=== PATIENT | female | born 1995 | race African-American/Black ===

== ENCOUNTER 2019-02-20 07:33 | Emergency (ER) | payer BC ==
[~2019-02-20] VITALS: Ht 162.6 cm; Wt 55.3 kg
[2019-02-20 08:08] LABS: URINE BILIRUBIN NEGATIVE (Negative); URINE BLOOD NEGATIVE (Negative); URINE CLARITY CLEAR; URINE COLOR YELLOW; URINE GLUCOSE-RANDOM* NEGATIVE (Negative); URINE KETONES NEGATIVE (Negative); URINE LEUKOCYTES TRACE (Negative); URINE NITRITE NEGATIVE (Negative); URINE PROTEIN (DIPSTICK) NEGATIVE (Negative); URINE SPECIFIC GRAVITY 1.025 (1.005-1.035); URINE UROBILINOGEN 0.2 E.U./dl (0.2-1.0)
[2019-02-20 08:30] LABS: HEMATOCRIT 39.2 % (37.0-47.0); MCH 26.3 pg (26.0-34.0); MCHC 33.2 g/dL (28.0-37.0); MCV 79.3 fL (80.0-100.0); PLATELET COUNT 218 thou/uL (150-400); RBC 4.95 mil/uL (4.20-5.00); RDW 16.3 % (10.5-14.5); WBC 3.5 thou/uL (4.0-11.0)
[2019-02-20 08:40] LABS: CALCIUM 9.3 mg/dL (8.5-10.1)
[2019-02-20 08:46] LABS: ALBUMIN 4.1 g/dL (3.4-5.0); DIRECT BILIRUBIN 0.1 mg/dL (<0.1-0.3); TOTAL BILIRUBIN 0.4 mg/dL (<0.1-1.0); TOTAL PROTEIN 7.7 g/dL (6.4-8.2)
[2019-02-20 09:35] LABS: ABSOLUTE NEUTROPHILS 1.2 thou/uL (1.4-8.2); ATYPICAL LYMPHS 2 %; PLATELET ESTIMATE NORMAL
[2019-02-20] MEDS ORDERED: MOBIC15 MG PO (10:23)
[2019-02-20 10:33] VITALS: BP 105/56
== END 2019-02-20 10:34 | disposition home or self-care (01) ==
LOC: ER 07:33
PROVIDERS: Emergency Medicine
DX: S39.012A Strain of muscle, fascia and tendon of lower back, initial encounter (principal); F41.9 Anxiety disorder, unspecified; F32.9 Major depressive disorder, single episode, unspecified; F17.210 Nicotine dependence, cigarettes, uncomplicated; Z98.890 Other specified postprocedural states; X58.XXXA Exposure to other specified factors, initial encounter; Y93.89 Activity, other specified; Y92.89 Other specified places as the place of occurrence of the external cause; Y99.8 Other external cause status

== ENCOUNTER 2020-04-20 04:56 | Emergency (ER) | payer BC ==
[~2020-04-20] VITALS: Ht 162.6 cm; Wt 56.7 kg
[~2020-04-20 04:56] MED LIST: MOBIC15 MG PO
[2020-04-20] MEDS ORDERED: TIZANIDINE4 MG/1 TA1 PO (05:17)
[2020-04-20] MEDS ORDERED: MIRENA1 EACH INTRAUTERI (05:18)
[2020-04-20] MEDS ORDERED: BUTALB-APAP-CA1 EACH PO (05:28)
[2020-04-20 06:25] VITALS: BP 106/51
== END 2020-04-20 06:25 | disposition home or self-care (01) ==
LOC: ER 04:56
DX: G43.909 Migraine, unspecified, not intractable, without status migrainosus (principal); R11.10 Vomiting, unspecified; R05 Cough; F41.9 Anxiety disorder, unspecified; F32.9 Major depressive disorder, single episode, unspecified; F17.210 Nicotine dependence, cigarettes, uncomplicated; Z98.890 Other specified postprocedural states; Z79.899 Other long term (current) drug therapy

== ENCOUNTER 2020-06-07 09:43 | Emergency (ER) | payer BC ==
[~2020-06-07] VITALS: Ht 162.6 cm; Wt 59.4 kg
[~2020-06-07 09:43] MED LIST changes: +BUTALB-APAP-CA1 EACH PO; +MIRENA1 EACH INTRAUTERI; +TIZANIDINE4 MG/1 TA1 PO
[2020-06-07] MEDS ORDERED: CYCLOBENZAPRINE5 MG PO (11:26)
[2020-06-07 11:36] VITALS: BP 110/70
== END 2020-06-07 11:35 | disposition home or self-care (01) ==
LOC: ER 09:43
DX: M54.2 Cervicalgia (principal); M54.5 Low back pain; M54.6 Pain in thoracic spine; G43.909 Migraine, unspecified, not intractable, without status migrainosus; F17.210 Nicotine dependence, cigarettes, uncomplicated; Z79.899 Other long term (current) drug therapy; V49.9XXA Car occupant (driver) (passenger) injured in unspecified traffic accident, initial encounter; Y93.89 Activity, other specified; Y92.89 Other specified places as the place of occurrence of the external cause; Y99.8 Other external cause status

== ENCOUNTER 2020-10-31 23:57 | Emergency (ER) | payer BC ==
[~2020-10-31] VITALS: Ht 162.6 cm; Wt 62.6 kg
[~2020-10-31 23:57] MED LIST changes: +CYCLOBENZAPRINE5 MG PO
[2020-11-01 00:32] LABS: URINE BILIRUBIN NEGATIVE (Negative); URINE BLOOD NEGATIVE (Negative); URINE CLARITY SL CLOUDY; URINE COLOR YELLOW; URINE GLUCOSE-RANDOM* NEGATIVE (Negative); URINE KETONES NEGATIVE (Negative); URINE NITRITE-REFLEX NEGATIVE (Negative); URINE PROTEIN (DIPSTICK) NEGATIVE (Negative); URINE SPECIFIC GRAVITY 1.025 (1.005-1.035); URINE UROBILINOGEN 0.2 E.U./dl (0.2-1.0)
[2020-11-01 00:34] LABS: URINE LEUKOCYTES-REFLEX 1+ (Negative)
[2020-11-01 01:13] LABS: BACTERIA-REFLEX 1-9 Few /HPF (None Seen); CASTS None Seen /LPF (None Seen); CRYSTALS None Seen /LPF (None Seen); MUCUS 0-3 Light strn/LPF (None Seen); SQUAMOUS >10 Many /LPF (0-3); URINE RBC 0-2 Rare /HPF (0-2); URINE WBC-REFLEX 6-15 Few /HPF (0-5)
[2020-11-01] MEDS ORDERED: CEPHALEXIN500 MG PO (02:55)
[2020-11-01 03:04] VITALS: BP 101/55
== END 2020-11-01 03:05 | disposition home or self-care (01) ==
LOC: ER 23:57
PROVIDERS: Emergency Medicine
DX: O20.0 Threatened abortion (principal); O23.41 Unspecified infection of urinary tract in pregnancy, first trimester; O99.331 Smoking (tobacco) complicating pregnancy, first trimester; F17.210 Nicotine dependence, cigarettes, uncomplicated; Z3A.00 Weeks of gestation of pregnancy not specified

== ENCOUNTER 2021-02-13 10:59 | Emergency (ER) | payer BC ==
[~2021-02-13] VITALS: Ht 162.6 cm; Wt 60.3 kg
[~2021-02-13 10:59] MED LIST changes: +CEPHALEXIN500 MG PO
[2021-02-13] MEDS ORDERED: ZOFRAN ODT4 MG PO (11:19)
[2021-02-13 12:49] VITALS: BP 125/84
== END 2021-02-13 12:50 | disposition home or self-care (01) ==
LOC: ER 10:59
DX: O98.512 Other viral diseases complicating pregnancy, second trimester (principal); U07.1 COVID-19; M79.10 Myalgia, unspecified site; G43.909 Migraine, unspecified, not intractable, without status migrainosus; F32.9 Major depressive disorder, single episode, unspecified; F41.9 Anxiety disorder, unspecified; F12.90 Cannabis use, unspecified, uncomplicated; F17.210 Nicotine dependence, cigarettes, uncomplicated; Z3A.20 20 weeks gestation of pregnancy; Z79.899 Other long term (current) drug therapy

== ENCOUNTER 2021-04-01 10:30 | Emergency (ER) | payer BC ==
[~2021-04-01] VITALS: Ht 162.6 cm; Wt 61.2 kg
[~2021-04-01 10:30] MED LIST changes: +ZOFRAN ODT4 MG PO
[2021-04-01 10:51] LABS: URINE BILIRUBIN NEGATIVE (Negative); URINE BLOOD NEGATIVE (Negative); URINE CLARITY CLEAR; URINE COLOR YELLOW; URINE GLUCOSE-RANDOM* NEGATIVE (Negative); URINE KETONES NEGATIVE (Negative); URINE LEUKOCYTES-REFLEX TRACE (Negative); URINE NITRITE-REFLEX NEGATIVE (Negative); URINE PROTEIN (DIPSTICK) TRACE (Negative); URINE SPECIFIC GRAVITY >= 1.030 (1.005-1.035); URINE UROBILINOGEN 0.2 E.U./dl (0.2-1.0)
[2021-04-01 11:38] VITALS: BP 102/56
== END 2021-04-01 11:39 | disposition home or self-care (01) ==
LOC: ER 10:30
PROVIDERS: Emergency Medicine
DX: O23.42 Unspecified infection of urinary tract in pregnancy, second trimester (principal); S39.011A Strain of muscle, fascia and tendon of abdomen, initial encounter; F41.9 Anxiety disorder, unspecified; F32.9 Major depressive disorder, single episode, unspecified; G43.909 Migraine, unspecified, not intractable, without status migrainosus; F17.210 Nicotine dependence, cigarettes, uncomplicated; F12.90 Cannabis use, unspecified, uncomplicated; Z3A.27 27 weeks gestation of pregnancy; Z98.890 Other specified postprocedural states; Z79.899 Other long term (current) drug therapy